=== PATIENT | female | born 1995 | race Asian ===

== ENCOUNTER 2018-06-03 15:39 | Emergency (ER) | payer OTHER ==
[2018-06-03 18:06] VITALS: BP 90/60
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
== END 2018-06-03 18:36 | disposition home or self-care (01) ==
LOC: UCCORT 15:39
DX: T23.101A Burn of first degree of right hand, unspecified site, initial encounter (principal); Y27.8XXA Contact with other hot objects, undetermined intent, initial encounter; Y92.9 Unspecified place or not applicable
CPT/HCPCS: 99202; G0463